=== PATIENT | male | born 1935 | race African-American/Black ===

== ENCOUNTER 2016-10-19 14:02 | Emergency (ER) | payer MEDICARE ==
[2016-10-19] MEDS ORDERED: Acetaminophen/Codeine 30-300mg Tablet ONE (14:22)
--- NOTE | 2016-10-19 14:42 | ERRECORD ---
[facility] EMERGENCY RECORD HPI GENERAL (14:25 [facility]) CHIEF COMPLAINT: Patient presents for evaluation of headache. HISTORIAN: History provided by patient, with headache x few days tooth extraction last week no fever or chills / ran out of t3 prescription no dizziness/ no nausea or vomiting or numbness or tingling pain 5-10 frontal head. MECHANISM OF INJURY: Unknown mechanism. LOCATION: frontal head. QUALITY: Pain is dull in nature. SEVERITY: Maximum severity of symptoms moderate, Currently symptoms are moderate. TIME COURSE: Gradual onset of symptoms, There has been no change in the patient's symptoms over time. ASSOCIATED WITH: No associated symptoms. EXACERBATED BY: Patient's condition exacerbated by nothing. RELIEVED BY: Patient's condition relieved by over the counter medications. ROS (14:26 [facility]) CONSTITUTIONAL: Negative constitutional review of systems. EYES: Negative eye review of systems. ENT: toothache. CARDIOVASCULAR: Negative cardiovascular review of systems. RESPIRATORY: Negative respiratory review of systems. GI: Negative gastrointestinal review of systems. NEUROLOGIC: Historian reports headache. NOTES: All systems reviewed, negative except as described above. PAST MEDICAL HISTORY (14:11 [facility]) MEDICAL HISTORY: Notes: BPH, Flu vaccine not up to date, Tetanus immunization up to date, Pneumococcal vaccine up to date, Notes: Lung Cancer (Left Lobectomy), Past medical history includes history of hypertension. MALE SURGICAL HISTORY: Left lung lobectomy. SOCIAL HISTORY: Patient denies alcohol use, Patient denies drug use, Patient denies alcohol use, Patient denies drug use, Patient is a former tobacco user, Patient quit smoking more than 10 years ago.. KNOWN ALLERGIES No Known Drug Allergies CURRENT MEDICATIONS (14:08 [facility]) Eliquis: TABLET : Strength - 5 mg : ORAL Patient Dose: 2 times a day. ferrous sulfate: &a-1R&a+25V*p+0X*c5227I*c202B*c15G*c2P*p-0X&a-25V&a+1R Name: Yao Crawford : 1935 M81 MedRec: [id number] AcctNum: [id number] Prepared: Wood Oct 19, 2016 15:11 by Interface Page 1 of 3 pMD [facility] EMERGENCY RECORD TABLET : Strength - 325 mg (65 mg iron) : ORAL Patient Dose: Oral once a day. pantoprazole: TABLET, DELAYED RELEASE (ENTERIC COATED) : Strength - 40 mg : ORAL Patient Dose: Oral 2 times a day.FOR 14 DAYS, 01/29/16. tamsulosin: CAPSULE, EXT RELEASE 24 HR : Strength - 0.4 mg : ORAL Patient Dose: Oral once a day (at bedtime). acetaminophen-codeine: TABLET : Strength - 300 mg-30 mg : ORAL Patient Dose: 1 tab(s) Oral every 6 hours PRN. spironolactone: TABLET : Strength - 50 mg : ORAL Patient Dose: 1 tab(s) Oral once a day. valsartan: TABLET : Strength - 160 mg : ORAL Patient Dose: 1 tab(s) Oral once a day. traMADol: TABLET : Strength - 50 mg : ORAL Patient Dose: 1 tab(s) Oral every 6 hours PRN. amLODIPine: TABLET : Strength - 5 mg : ORAL Patient Dose: 1 tab(s) Oral once a day. carvedilol: TABLET : Strength - 12.5 mg : ORAL Patient Dose: 1 tab(s) Oral 2 times a day. cloNIDine HCl: TABLET : Strength - 0.3 mg : ORAL Patient Dose: 1 tab(s) Oral 2 times a day. Combivent Respimat: MIST INHALER (GRAM) : Strength - 20 mcg-100 mcg/actuation : INHALATION Patient Dose: Unknown. VITAL SIGNS (14:08 [facility]) VITAL SIGNS: BP: 120/67, Pulse: 83, Resp: 16, Temp: 97.1 (Oral), Pain: 9, O2 sat: 96, Time: 10/19/2016 14:08. PHYSICAL EXAM (14:27 [facility]) CONSTITUTIONAL: Vital signs reviewed, Patient afebrile, Pulse normal, Blood pressure normal, Respiratory rate normal, Patient appears non toxic, Patient appears pain free, Patient alert and oriented to person, place and time. HEAD: Head exam normal. EYES: Eye exam normal. ENT: Teeth with, dental caries, R lower side area of extraction not infected no bleeding or swelling. NECK: Neck exam normal. RESPIRATORY CHEST: Respiratory and chest exam normal. &a-1R&a+25V*p+0X*[id number]*c202B*c15G*c2P*p-0X&a-25V&a+1R Name: Yao Crawford : 1935 M81 MedRec: [id number] AcctNum: [id number] Prepared: TueOct 19, 2016 15:11 by Interface Page 2 of 3 pMD [facility] EMERGENCY RECORD CARDIOVASCULAR: Cardiovascular assessment normal. NEURO: Neuro exam normal. MEDICATION ADMINISTRATION SUMMARY Drug Name: acetaminophen-codeine, Dose Ordered: 2 tab(s), Route: Oral, Status: Given, Time: 14:22 10/19/2016, Detailed record available in Medication Service section. DOCTOR NOTES (14:23 [facility]) TEXT: 81 yo M with frontal headache s/p tooth extraction last week no fever or chills / ran out of t3 t3 refill / follow up with pcp as needed. PATIENT PLAN: The patient will be discharged, The patient will follow up with primary care physician. DATA REVIEWED: Discussed with family. PROBLEM LIST No recorded problems DIAGNOSIS (14:21 [facility]) FINAL: PRIMARY: Headache, ADDITIONAL: Toothache. PRESCRIPTION (14:21 [facility]) acetaminophen-codeine: TABLET : 300 mg-30 mg : ORAL : Quantity: 1 Unit: tab(s) Route: ORAL Schedule: every 6 hours PRN Dispense: 15 Unit: tab(s) May substitute. Refills: No Refills . NOTES: No Refills. DISPOSITION PATIENT: Disposition Type: Discharge, Disposition: *Discharge Home. (14:21 [facility]) Patient left the department. (14:33 [facility]) Webb: VON=MARIA T Tucker, Yannick SEPULVEDA=MD Nory, Trina &a-1R&a+25V*p+0X*o5792O*c202B*c15G*c2P*p-0X&a-25V&a+1R Name: Yao Crawford : 1935 M81 MedRec: [id number] AcctNum: [id number] Prepared: TueOct 19, 2016 15:11 by Interface Page 3 of 3 pMD [facility]TDD
--- NOTE | 2016-10-19 14:46 | PICIS ---
[facility] EMERGENCY RECORD TRIAGE (14:08 [facility]) TRIAGE NOTES: Headache, constant 2 days mostly frontal headache. (14:08 [facility]) PATIENT: NAME: Yao Crawford, AGE: 81, GENDER: male, : Tue1935, TIME OF GREET: TueOct 19, 2016 14:03, PREFERRED LANGUAGE: Yakut, ETHNICITY: Not or , ECODE BILLING MAP: [facility], SSN: [id number], Zip Code: [address], KG WEIGHT: 64.41, PHONE: , , , PERSON ID: [id number], PCP: Faina Nath. (14:08 [facility]) COMPLAINT: HEADACHE. (14:08 [facility]) ADMISSION: URGENCY: 3 Urgent, ADMISSION SOURCE: Home, TRANSPORT: CAR, BED: TRIAGE. (14:08 [facility]) ASSESSMENT: Assessment: Frontal Headache 2-3 days onset, Symptoms began 2-3 days, Symptoms began 3 days ago. (14:11 [facility]) PAIN: Patient complains of pain described as, on a scale 0-10 patient rates pain as 9. (14:11 [facility]) SIRS SCORING: Heart Rate 55-109 (0), Temp range 96.8-101.1 (0), respiratory rate 12-24 (0), Mental Status altered: no (0), Infection or Suspected Infection: No. (14:11 [facility]) TRIAGE SCREENING: Patient denies suicidal ideation, Patient denies presence of domestic violence. (14:11 [facility]) PROVIDERS: TRIAGE NURSE: Yannick Tucker RN. (14:08 [facility]) PREVIOUS VISIT ALLERGIES: No Known Drug Allergies. (14:08 [facility]) No Known Drug Allergies. (14:11 [facility]) KNOWN ALLERGIES No Known Drug Allergies CURRENT MEDICATIONS (14:08 [facility]) Eliquis: TABLET : Strength - 5 mg : ORAL Patient Dose: 2 times a day. ferrous sulfate: TABLET : Strength - 325 mg (65 mg iron) : ORAL Patient Dose: Oral once a day. pantoprazole: TABLET, DELAYED RELEASE (ENTERIC COATED) : Strength - 40 mg : ORAL Patient Dose: Oral 2 times a day.FOR 14 DAYS, 5/12/16. tamsulosin: CAPSULE, EXT RELEASE 24 HR : Strength - 0.4 mg : ORAL Patient Dose: Oral once a day (at bedtime). acetaminophen-codeine: TABLET : Strength - 300 mg-30 mg : ORAL Patient Dose: 1 tab(s) Oral every 6 hours PRN. spironolactone: TABLET : Strength - 50 mg : ORAL Patient Dose: 1 tab(s) Oral once a day. valsartan: TABLET : Strength - 160 mg : ORAL &a-1R&a+25V*p+0X*m8977G*c202B*c15G*c2P*p-0X&a-25V&a+1R Name: Yao Crawford : 1935 M81 MedRec: [id number] AcctNum: [id number] Prepared: Wood Oct 19, 2016 15:11 by Interface Page 1 of 6 pMD [facility] EMERGENCY RECORD Patient Dose: 1 tab(s) Oral once a day. traMADol: TABLET : Strength - 50 mg : ORAL Patient Dose: 1 tab(s) Oral every 6 hours PRN. amLODIPine: TABLET : Strength - 5 mg : ORAL Patient Dose: 1 tab(s) Oral once a day. carvedilol: TABLET : Strength - 12.5 mg : ORAL Patient Dose: 1 tab(s) Oral 2 times a day. cloNIDine HCl: TABLET : Strength - 0.3 mg : ORAL Patient Dose: 1 tab(s) Oral 2 times a day. Combivent Respimat: MIST INHALER (GRAM) : Strength - 20 mcg-100 mcg/actuation : INHALATION Patient Dose: Unknown. VITAL SIGNS (14:08 [facility]) VITAL SIGNS: BP: 120/67, Pulse: 83, Resp: 16, Temp: 97.1 (Oral), Pain: 9, O2 sat: 96, Time: 10/19/2016 14:08. NURSING ASSESSMENT: HEADACHE (14:08 [facility]) CONSTITUTIONAL: Patient arrives, via personal wheelchair, Gait steady, History obtained from patient, Patient appears comfortable, Patient cooperative, Patient alert, Oriented to person, place and time, Skin warm, Skin dry, Skin normal in color, Mucous membranes pink, Mucous membranes moist, Patient complains of Frontal Sinus Pressure/ Headache, 2-3 days onset. PAIN: aching pain, pressure pain, to the frontal region, Onset of pain 2-3 days, on a scale 0-10 patient rates pain as 9. HEADACHE: Headache assessment findings include headache not worst of life, no history of migraines, no associated aura, no associated difficulty concentrating, not associated with diplopia, no associated nausea, no associated vomiting, no associated photophobia, no associated phonophobia, no associated, Precipitating factors do not include depression, Precipitating factors do not include fatigue, Precipitating factors do not include fever, Precipitating factors do not include flickering lights, Precipitating factors do not include food, Precipitating factors do not include menses, Precipitating factors do not include stress, Precipitating factors do not include watching television, Precipitating factors do not include. NEURO: Pupils equally round and reactive to light, Able to close eyes, Face symmetrical, Speech normal, no ptosis, no nystagmus, no visual changes, no facial droop, no facial numbness, no swelling, no paresthesias, GCS:, Eye opening: (4) - Spontaneous, Verbal: (5) - Oriented/conversive, Motor: (6) - Obeys commands/Spontaneous, GCS Total: 15, Hand grasps equal, Upper extremity strength strong, no numbness to upper extremities, Lower extremity strength &a-1R&a+25V*p+0X*a5782W*c202B*c15G*c2P*p-0X&a-25V&a+1R Name: Yao Crawford : 1935 M81 MedRec: [id number] AcctNum: [id number] Prepared: Wood Oct 19, 2016 15:11 by Interface Page 2 of 6 pMD [facility] EMERGENCY RECORD strong, Foot press equal, no numbness to lower extremities, no associated dizziness present, no associated fever, no associated memory loss, no associated loss of consciousness, no associated motor ability changes, no associated neck stiffness, no associated nausea, no associated alterations in sensation, no associated personality changes, no associated posturing, no associated seizures, no associated syncopal episode, no associated vomiting, no associated weakness. SAFETY: Side rails up, Cart/Stretcher in lowest position, Family at bedside, Call light within reach, Hospital ID band on. NURSING PROCEDURE: DISCHARGE NOTE (14:27 [facility]) DISCHARGE: Patient discharged to home, in a wheelchair, family driving, accompanied by other family member, Summary of Care printed/ provided, Patient requested and was provided an electronic copy of Discharge Instructions, Transition record given to patient, Discharge instructions given to patient, Simple or moderate discharge teaching performed, Prescriptions given and instructions on side effects given, Name of prescription(s) given: Tylenol # 3, Medication reconciliation form given, Above person(s) verbalized understanding of discharge instructions and follow-up care, Patient treated and evaluated by physician. BELONGINGS: Belongings and valuables with patient at time of discharge include:, Belongings remain with patient, Valuables remain with patient. SAFETY: Side rails up, Cart/Stretcher in lowest position, Family at bedside, Call light within reach, Hospital ID band on. MEDICATION ADMINISTRATION SUMMARY Drug Name: acetaminophen-codeine, Dose Ordered: 2 tab(s), Route: Oral, Status: Given, Time: 14:22 10/19/2016, Detailed record available in Medication Service section. MEDICATION SERVICE (14:22 [facility]) acetaminophen-codeine: Order: acetaminophen-codeine (acetaminophen/codeine phosphate) - Dose: 2 tab(s) : Oral Schedule: Now Ordered by: Trina Cueto MD Entered by: Trina Cueto MD TueOct 19, 2016 14:20 , Acknowledged by: Yannick Tucker RN Oct 19, 2016 14:21 Documented as given by: Yannick Tucker RN Oct 19, 2016 14:22 Patient, Medication, Dose, Route and Time verified prior to administration. Patient appears Awake and alert- acceptable, Correct patient, time, route, dose and medication confirmed prior to administration, Patient advised of actions and side-effects prior to administration, Allergies confirmed and medications reviewed prior to administration, Patient in position of comfort, Side rails up, Cart in lowest position, Family at bedside, Call light in reach. &a-1R&a+25V*p+0X*e0129X*c202B*c15G*c2P*p-0X&a-25V&a+1R Name: Yao Crawford : 1935 M81 MedRec: [id number] AcctNum: [id number] Prepared: Tue Oct 19, 2016 15:11 by Interface Page 3 of 6 pMD [facility] EMERGENCY RECORD HPI GENERAL (14:25 [facility]) CHIEF COMPLAINT: Patient presents for evaluation of headache. HISTORIAN: History provided by patient, with headache x few days tooth extraction last week no fever or chills / ran out of t3 prescription no dizziness/ no nausea or vomiting or numbness or tingling pain 5-10 frontal head. MECHANISM OF INJURY: Unknown mechanism. LOCATION: frontal head. QUALITY: Pain is dull in nature. SEVERITY: Maximum severity of symptoms moderate, Currently symptoms are moderate. TIME COURSE: Gradual onset of symptoms, There has been no change in the patient's symptoms over time. ASSOCIATED WITH: No associated symptoms. EXACERBATED BY: Patient's condition exacerbated by nothing. RELIEVED BY: Patient's condition relieved by over the counter medications. ROS (14:26 [facility]) CONSTITUTIONAL: Negative constitutional review of systems. EYES: Negative eye review of systems. ENT: toothache. CARDIOVASCULAR: Negative cardiovascular review of systems. RESPIRATORY: Negative respiratory review of systems. GI: Negative gastrointestinal review of systems. NEUROLOGIC: Historian reports headache. NOTES: All systems reviewed, negative except as described above. PAST MEDICAL HISTORY (14:11 [facility]) MEDICAL HISTORY: Notes: BPH, Flu vaccine not up to date, Tetanus immunization up to date, Pneumococcal vaccine up to date, Notes: Lung Cancer (Left Lobectomy), Past medical history includes history of hypertension. MALE SURGICAL HISTORY: Left lung lobectomy. SOCIAL HISTORY: Patient denies alcohol use, Patient denies drug use, Patient denies alcohol use, Patient denies drug use, Patient is a former tobacco user, Patient quit smoking more than 10 years ago.. PHYSICAL EXAM (14:27 [facility]) CONSTITUTIONAL: Vital signs reviewed, Patient afebrile, Pulse normal, Blood pressure normal, Respiratory rate normal, Patient appears non toxic, Patient appears pain free, Patient alert and oriented to person, place and time. HEAD: Head exam normal. EYES: Eye exam normal. &a-1R&a+25V*p+0X*g9440X*c202B*c15G*c2P*p-0X&a-25V&a+1R Name: Yao Crawford : 1935 M81 MedRec: [id number] AcctNum: [id number] Prepared: TueOct 19, 2016 15:11 by Interface Page 4 of 6 pMD [facility] EMERGENCY RECORD ENT: Teeth with, dental caries, R lower side area of extraction not infected no bleeding or swelling. NECK: Neck exam normal. RESPIRATORY CHEST: Respiratory and chest exam normal. CARDIOVASCULAR: Cardiovascular assessment normal. NEURO: Neuro exam normal. EVENTS TRANSFER: Triage to Emergency Triage. (TueOct 19, 2016 14:08 [facility]) Emergency Triage to Emergency Room -02. (14:08 [facility]) Removed from Emergency Emergency Room -02. (14:33 [facility]) DOCTOR NOTES (14:23 [facility]) TEXT: 81 yo M with frontal headache s/p tooth extraction last week no fever or chills / ran out of t3 t3 refill / follow up with pcp as needed. PATIENT PLAN: The patient will be discharged, The patient will follow up with primary care physician. DATA REVIEWED: Discussed with family. PROBLEM LIST No recorded problems DIAGNOSIS (14:21 [facility]) FINAL: PRIMARY: Headache, ADDITIONAL: Toothache. DISPOSITION PATIENT: Disposition Type: Discharge, Disposition: *Discharge Home. (14:21 [facility]) Patient left the department. (14:33 [facility]) INSTRUCTION (14:22 [facility]) DISCHARGE: HEADACHE, UNSPECIFIED, TOOTH PAIN. SPECIAL: please take pain medications as needed follow up with your pcp or dentist if not improved. PRESCRIPTION (14:21 [facility]) acetaminophen-codeine: TABLET : 300 mg-30 mg : ORAL : Quantity: 1 Unit: tab(s) Route: ORAL Schedule: every 6 hours PRN Dispense: 15 Unit: tab(s) May substitute. Refills: No Refills . NOTES: No Refills. IMAGING (14:31 [facility]) &a-1R&a+25V*p+0X*g1328S*c202B*c15G*c2P*p-0X&a-25V&a+1R Name: Yao Crawford : 1935 M81 MedRec: [id number] AcctNum: [id number] Prepared: TueOct 19, 2016 15:11 by Interface Page 5 of 6 pMD [facility] EMERGENCY RECORD *SUPPLY CHARGE SHEET: Image captured from scanner. *DISCHARGE INSTRUCTIONS RECEIPT: Image captured from scanner. ADMIN (15:03 [facility]) DIGITAL SIGNATURE: MD Nory, Trina. Webb: VON=MARIA T Tucker, Yannick SEPULVEDA=MD Nory, Trina &a-1R&a+25V*p+0X*x9214S*c202B*c15G*c2P*p-0X&a-25V&a+1R Name: Yao Crawford : 1935 M81 MedRec: [id number] AcctNum: [id number] Prepared: Wood Oct 19, 2016 15:11 by Interface Page 6 of 6 pMD MTDD
== END 2016-10-19 14:27 | disposition home or self-care (01) ==
LOC: NAV ERS 14:02
DX: R51 Headache (principal); K08.89 Other specified disorders of teeth and supporting structures; I10 Essential (primary) hypertension; Z87.891 Personal history of nicotine dependence; Z85.118 Personal history of other malignant neoplasm of bronchus and lung; Z79.891 Long term (current) use of opiate analgesic; Z79.899 Other long term (current) drug therapy
CPT/HCPCS: 99283

== ENCOUNTER 2016-10-31 14:08 | Emergency (ER) | payer MEDICARE ==
[2016-10-31] MEDS ORDERED: Acetaminophen 500 MG TAB ONE ×2 (14:44)
== END 2016-10-31 15:55 | disposition home or self-care (01) ==
LOC: NAV ERS 14:08
DX: S60.562A Insect bite (nonvenomous) of left hand, initial encounter (principal); I10 Essential (primary) hypertension; Z87.891 Personal history of nicotine dependence; Z79.899 Other long term (current) drug therapy
CPT/HCPCS: 99283

== ENCOUNTER 2017-03-02 23:04 | Emergency (ER) | payer MEDICARE ==
[2017-03-02] MEDS ORDERED: Acetaminophen 500 MG TAB ONE (23:33)
[2017-03-02] MEDS ORDERED: Fentanyl 100 MCG/2 ML VIAL ONE (23:33)
[2017-03-02] MEDS ORDERED: Sodium Chloride 0.9% 1,000 ML ONE (23:33)
[2017-03-02 23:58] LABS: Clarity Clear (Clear)
--- NOTE | 2017-03-02 23:58 | RAD ---
CHEST ONE VIEW 03/02/17 HISTORY: Fever. COMPARISON: None. FINDINGS: There is a right upper lobe air space opacity peripherally. This extends to the minor fissure. There is prominence of the right hilum. On the lower view of the chest, there is a prominent right upper lobe skin fold. Left lung appears relatively clear. The heart size is prominent. IMPRESSION: Right upper lobe and middle lobe air space opacity concerning for infection. There is, however, mild prominence of the right hilum for which a followup examination after treatment is recommended. Unde rlying mass cannot be excluded. POS: [facility]
[2017-03-02 23:59] LABS: Bilirubin Negative (Negative); Blood, Urine Negative (Negative); Glucose, Urine (Dipstick) Negative (Negative); Protein, Urine (Dipstick) Negative (Neg-Trace); Specific Gravity, Urine 1.017 (1.002-1.036); Urobilinogen 0.2 mg/dL (0.2-1.0); pH, Urine 6.5 (5.0-9.0)
[2017-03-03] LABS: Leukocyte Trace (Negative); Nitrite Negative (Negative)
[2017-03-03 00:08] LABS: RBC/HPF None Seen HPF (0-3); WBC/HPF 0-3 HPF (0-3)
[2017-03-03 00:09] LABS: Squamous Epithelial 0-3 HPF (0-3)
[2017-03-03 00:10] LABS: ALT (SGPT) 9 U/L (8-55); AST (SGOT) 16 U/L (5-34); Albumin 4.1 g/dL (3.4-4.8); Alkaline Phosphatase 125 U/L (40-150); Anion Gap 17 mmol/L (10-20); BUN (Urea Nitrogen) 22 mg/dL (8.4-25.7); Bilirubin, Total 0.9 mg/dL (0.2-1.2); CK (CPK) 143 U/L (30-200); Calc. Creatinine Clearance 0 mL/min (70-130); Calcium 9.5 mg/dL (7.8-10.44); Carbon Dioxide 23 mmol/L (23-31); Chloride 105 mmol/L (98-107); Estimated GFR-MDRD 65; Globulin 3.7 g/dL (2.4-3.5); Glucose 126 mg/dL (83-110); Potassium 4.1 mmol/L (3.5-5.1); Protein, Total 7.8 g/dL (5.8-8.1); Sodium 141 mmol/L (136-145)
[2017-03-03 00:10] LABS: Bacteria/HPF Rare-Few HPF (None Seen)
[2017-03-03 00:12] LABS: CKMB 2.1 ng/mL (0-6.6)
[2017-03-03 00:15] LABS: Band 34 % (5-11); Hemoglobin 14.3 g/dL (14.0-18.0); Lymphocytes 12 % (21-51); MDiff Complete? YES; Macrocytosis SLIGHT = 6-15 cells (100X) (0-5/hpf); Mean Corpuscular HGB CONC 32.6 g/dL (32.0-36.0); Mean Corpuscular Hemoglobin 33.7 pg (27.0-31.0); Mean Platelet Volume 6.2 fL (7.4-10.4); Monocytes 3 % (0-10); Myelocyte 1 % (0-0); Neutrophil 50 % (42-75); PLT Morphology Comment Appears Adequate; Platelet Count 307 thou/uL (130-400); RBC Distribution Width 12.8 % (11.5-14.5); Red Blood Cell (RBC) Count 4.24 mill/uL (4.70-6.10); White Blood Cell (WBC) Count 7.7 thou/uL (4.8-10.8)
[2017-03-03] MEDS ORDERED: Levofloxacin 500 mg/D5W 100 ml Premix Bag ONE (00:30)
== END 2017-03-03 01:08 | disposition short-term general hospital (02) ==
LOC: NAV ERS 23:04
DX: J18.9 Pneumonia, unspecified organism (principal); I10 Essential (primary) hypertension; Z87.891 Personal history of nicotine dependence
CPT/HCPCS: 51701; 71010; 80053; 81003; 81015; 82550; 82553; 83605; 84484; 85025; 87040; 87086; 93005; 94760; 96374; 96375; J1956; J3010; J7050

== ENCOUNTER 2017-04-14 11:26 | Outpatient (CLI) | payer MEDICARE ==
--- NOTE | 2017-04-14 12:02 | RAD ---
TWO VIEWS CHEST: History: Hypoxia, pneumonia. FINDINGS: PA and lateral views obtained. Ectasia of the aorta is seen. Mild pulmonary vascular congestion is s een. Some left pleural based calcifications are seen. No evidence of effusions, pneumonia, or pneumo thorax is seen. IMPRESSION: No acute intrathoracic abnormality seen. POS: [facility]
== END 2017-04-14 11:27 | disposition home or self-care (01) ==
LOC: NAV RAD 11:26
PROVIDERS: ATTEND Nurse Practitioner Family
DX: J18.9 Pneumonia, unspecified organism (principal); R09.02 Hypoxemia; R06.00 Dyspnea, unspecified
CPT/HCPCS: 71020

== ENCOUNTER 2017-08-02 22:27 | Emergency (ER) | payer MEDICARE ==
[2017-08-02 22:55] LABS: Anisocytosis MODERATE=16-30 cells (100X) (0-5/hpf); Eosinophils 1 % (0-10); Hemoglobin 12.9 g/dL (14.0-18.0); Lymphocytes 74 % (21-51); MDiff Complete? YES; Mean Corpuscular HGB CONC 32.8 g/dL (32.0-36.0); Mean Corpuscular Hemoglobin 34.9 pg (27.0-31.0); Mean Platelet Volume 6.6 fL (7.4-10.4); Monocytes 5 % (0-10); Neutrophil 20 % (42-75); Nucleated RBC 1 % (0); Ovalocytes SLIGHT = 2-5 cells (100X) (0-1/hpf); PLT Morphology Comment Appears Adequate; Platelet Count 218 thou/uL (130-400); RBC Distribution Width 12.7 % (11.5-14.5); Red Blood Cell (RBC) Count 3.71 mill/uL (4.70-6.10); Tear Drops SLIGHT = 2-5 cells (100X) (0-1/hpf); White Blood Cell (WBC) Count 4.8 thou/uL (4.8-10.8)
--- NOTE | 2017-08-02 23:00 | RAD ---
CHEST ONE VIEW 08/02/17 HISTORY: Chest pain. FINDINGS: The cardiac silhouette and pulmonary vasculature are unremarkable. Lungs are hyperinflated. Mediasti num is midline. There is no lobar consolidation, or evidence of pneumothorax. Azygos fissure is note d at the medial aspect of the right lung apex. program and research coordinator leads overlie the chest. There are de generative changes of each shoulder. IMPRESSION: COPD. POS: [facility]
[2017-08-02 23:06] LABS: ALT (SGPT) 11 U/L (8-55); AST (SGOT) 18 U/L (5-34); Albumin 3.7 g/dL (3.4-4.8); Alkaline Phosphatase 125 U/L (40-150); Anion Gap 13 mmol/L (10-20); BUN (Urea Nitrogen) 19 mg/dL (8.4-25.7); Bilirubin, Total 0.3 mg/dL (0.2-1.2); CK (CPK) 211 U/L (30-200); Calc. Creatinine Clearance 0 mL/min (70-130); Calcium 8.8 mg/dL (7.8-10.44); Carbon Dioxide 26 mmol/L (23-31); Chloride 104 mmol/L (98-107); Estimated GFR-MDRD 74; Globulin 3.4 g/dL (2.4-3.5); Glucose 73 mg/dL (83-110); Lipase 19 U/L (8-78); Potassium 3.9 mmol/L (3.5-5.1); Protein, Total 7.1 g/dL (5.8-8.1); Sodium 139 mmol/L (136-145)
[2017-08-02 23:07] LABS: CKMB 5.5 ng/mL (0-6.6); Troponin I 0.045 ng/mL (< 0.028)
== END 2017-08-03 01:07 | disposition short-term general hospital (02) ==
LOC: NAV ERS 22:27
DX: R07.9 Chest pain, unspecified (principal); I10 Essential (primary) hypertension; Z87.891 Personal history of nicotine dependence
CPT/HCPCS: 36415; 71010; 80053; 82553; 83690; 84484; 85025; 93005

== ENCOUNTER 2017-08-03 21:49 | Emergency (ER) | payer MEDICARE ==
[2017-08-03 22:33] LABS: Bilirubin Negative (Negative); Blood, Urine Negative (Negative); Clarity Clear (Clear); Glucose, Urine (Dipstick) Negative (Negative); Leukocyte Negative (Negative); Nitrite Negative (Negative); Protein, Urine (Dipstick) Trace mg/dL (Neg-Trace); Urobilinogen 0.2 mg/dL (0.2-1.0); pH, Urine 5.5 (5.0-9.0)
[2017-08-03 22:44] LABS: ALT (SGPT) 10 U/L (8-55); AST (SGOT) 17 U/L (5-34); Albumin 3.6 g/dL (3.4-4.8); Alkaline Phosphatase 117 U/L (40-150); Anion Gap 13 mmol/L (10-20); BUN (Urea Nitrogen) 25 mg/dL (8.4-25.7); Bilirubin, Total 0.3 mg/dL (0.2-1.2); Calc. Creatinine Clearance 0 mL/min (70-130); Calcium 8.6 mg/dL (7.8-10.44); Carbon Dioxide 27 mmol/L (23-31); Chloride 104 mmol/L (98-107); Estimated GFR-MDRD 76; Globulin 3.3 g/dL (2.4-3.5); Glucose 94 mg/dL (83-110); Lipase 21 U/L (8-78); Potassium 4.3 mmol/L (3.5-5.1); Protein, Total 6.9 g/dL (5.8-8.1); Sodium 140 mmol/L (136-145)
[2017-08-03 22:45] LABS: Troponin I 0.032 ng/mL (< 0.028)
[2017-08-03 22:48] LABS: Band 5 % (5-11); Eosinophils 2 % (0-10); Hemoglobin 12.6 g/dL (14.0-18.0); Lymphocytes 63 % (21-51); MDiff Complete? YES; Macrocytosis SLIGHT = 6-15 cells (100X) (0-5/hpf); Mean Corpuscular HGB CONC 32.5 g/dL (32.0-36.0); Mean Platelet Volume 6.9 fL (7.4-10.4); Neutrophil 29 % (42-75); PLT Morphology Comment Appears Adequate; Platelet Count 314 thou/uL (130-400); RBC Distribution Width 12.4 % (11.5-14.5); Reactive Lymphocytes 1 % (0-10); White Blood Cell (WBC) Count 4.1 thou/uL (4.8-10.8)
[2017-08-03 22:54] LABS: CKMB 7.8 ng/mL (0-6.6)
== END 2017-08-03 23:00 | disposition home or self-care (01) ==
LOC: NAV ERS 21:49
DX: R10.11 Right upper quadrant pain (principal); I10 Essential (primary) hypertension; Z87.891 Personal history of nicotine dependence
CPT/HCPCS: 80053; 81003; 82550; 82553; 83690; 84484; 85025; 93005

== ENCOUNTER 2017-08-22 20:39 | Emergency (ER) | payer MEDICARE ==
--- NOTE | 2017-08-22 21:33 | RAD ---
ONE VIEW CHEST: History: Shortness of breath, cough x one week. Comparison: 08-02-17 FINDINGS: Normal cardiac silhouette. The pulmonary vessels and hilum are normal. Costophrenic angles are clear. Hyperinflation with chronic changes. No consolidation or mass. No pneumothorax or osseous abnormalit ies. Degenerative changes in both shoulders are noted. IMPRESSION: Chronic changes. No acute cardiopulmonary process. POS: [facility]
[2017-08-22 21:34] LABS: ALT (SGPT) 21 U/L (8-55); AST (SGOT) 27 U/L (5-34); Albumin 3.2 g/dL (3.4-4.8); Alkaline Phosphatase 108 U/L (40-150); Anion Gap 15 mmol/L (10-20); BUN (Urea Nitrogen) 20 mg/dL (8.4-25.7); Bilirubin, Total 0.2 mg/dL (0.2-1.2); Calc. Creatinine Clearance 0 mL/min (70-130); Calcium 8.3 mg/dL (7.8-10.44); Carbon Dioxide 22 mmol/L (23-31); Chloride 109 mmol/L (98-107); Estimated GFR-MDRD 83; Globulin 3.2 g/dL (2.4-3.5); Glucose 89 mg/dL (83-110); Potassium 4.6 mmol/L (3.5-5.1); Protein, Total 6.4 g/dL (5.8-8.1); Sodium 141 mmol/L (136-145)
[2017-08-22 21:38] LABS: Hemoglobin 11.1 g/dL (14.0-18.0); Mean Corpuscular HGB CONC 34.6 g/dL (32.0-36.0); Mean Corpuscular Hemoglobin 36.6 pg (27.0-31.0); Mean Platelet Volume 6.1 fL (7.4-10.4); Platelet Count 297 thou/uL (130-400); Red Blood Cell (RBC) Count 3.04 mill/uL (4.70-6.10); White Blood Cell (WBC) Count 4.6 thou/uL (4.8-10.8)
[2017-08-22 21:40] LABS: CKMB 5.5 ng/mL (0-6.6); Troponin I 0.026 ng/mL (< 0.028)
[2017-08-22 21:56] LABS: Eosinophils 4 % (0-10); Large Platelets SLIGHT; Lymphocytes 54 % (21-51); MDiff Complete? YES; Macrocytosis SLIGHT = 6-15 cells (100X) (0-5/hpf); Monocytes 2 % (0-10); Neutrophil 40 % (42-75); PLT Morphology Comment Appears Adequate
== END 2017-08-22 22:45 | disposition home or self-care (01) ==
LOC: NAV ERS 20:39
DX: R06.00 Dyspnea, unspecified (principal); I10 Essential (primary) hypertension; F03.90 Unspecified dementia, unspecified severity, without behavioral disturbance, psychotic disturbance, mood disturbance, and anxiety; Z87.891 Personal history of nicotine dependence
CPT/HCPCS: 36415; 71010; 80053; 82553; 83880; 84484; 85025; 87040; 93005

== ENCOUNTER 2017-08-28 15:27 | Emergency (ER) | payer MEDICARE ==
[2017-08-28 16:14] LABS: Bilirubin Negative (Negative); Blood, Urine Trace (Negative); Clarity Clear (Clear); Glucose, Urine (Dipstick) Negative (Negative); Leukocyte Negative (Negative); Nitrite Negative (Negative); Protein, Urine (Dipstick) 30 mg/dL (Neg-Trace); Urobilinogen 0.2 mg/dL (0.2-1.0)
[2017-08-28 16:24] LABS: #Basophils 0.1 thou/uL (0.0-0.2); #Lymphocytes 1.6 thou/uL (1.20-3.40); #Monocytes 0.1 thou/uL (0.11-0.59); #Neutrophils 5.3 thou/uL (1.40-6.50); %Basophils 0.8 % (0.0-1.0); %Eosinophils 0.2 % (0.0-10.0); %Lymphocytes 22.4 % (21.0-51.0); %Monocytes 1.8 % (0.0-10.0); %Neutrophils 74.8 % (42.0-75.0); Hemoglobin 11.9 g/dL (14.0-18.0); Mean Corpuscular Hemoglobin 35.7 pg (27.0-31.0); Mean Platelet Volume 6.3 fL (7.4-10.4); Platelet Count 318 thou/uL (130-400); RBC Distribution Width 12.9 % (11.5-14.5); Red Blood Cell (RBC) Count 3.34 mill/uL (4.70-6.10); White Blood Cell (WBC) Count 7.1 thou/uL (4.8-10.8)
[2017-08-28 16:28] LABS: ALT (SGPT) 84 U/L (8-55); AST (SGOT) 34 U/L (5-34); Albumin 3.6 g/dL (3.4-4.8); Alkaline Phosphatase 136 U/L (40-150); Anion Gap 15 mmol/L (10-20); BUN (Urea Nitrogen) 23 mg/dL (8.4-25.7); Bilirubin, Total 0.6 mg/dL (0.2-1.2); Calc. Creatinine Clearance 0 mL/min (70-130); Calcium 8.7 mg/dL (7.8-10.44); Carbon Dioxide 24 mmol/L (23-31); Chloride 103 mmol/L (98-107); Estimated GFR-MDRD 68; Globulin 3.4 g/dL (2.4-3.5); Glucose 100 mg/dL (83-110); Lipase 6 U/L (8-78); Potassium 4.2 mmol/L (3.5-5.1); Sodium 138 mmol/L (136-145)
[2017-08-28 16:30] LABS: RBC/HPF 0-3 HPF (0-3); Squamous Epithelial 0-3 HPF (0-3); WBC/HPF 0-3 HPF (0-3)
--- NOTE | 2017-08-28 17:17 | CT ---
ABDOMEN AND PELVIS CT NONCONTRAST: Date: 08/28/17 INDICATION: Periumbilical pain. Reference made to 03/03/17 CT exam. FINDINGS: There is incomplete assessed reticulonodular opacification of the lung bases, more notable on the rig ht, which may be on the basis of an atypical infection. There is bilateral nephrolithiasis, without s ignificant hydronephrosis, although limited by the degree of patient motion. There is diffuse vascula r calcification. Solid abdominal viscera, bowel, lymph nodes, and vasculature are limited in assessme nt by noncontrast technique. There is marked abnormality of each hip joint with osseous destruction a nd synovial fluid collection, similar to prior CT. IMPRESSION: 1. Redemonstration of bilateral nephrolithiasis. There is no obvious hydronephrosis. Exam is limited by the degree of patient motion. 2. Evidence to indicate probable atypical infection at the lung bases, incompletely visualized on th e basis of this exam. Correlate clinically. POS: [facility]
[2017-08-28] MEDS ORDERED: Acetaminophen/Codeine 30-300mg Tablet ONE (17:25)
[2017-08-28] MEDS ORDERED: Carvedilol 3.125 MG TAB ONE (17:35)
== END 2017-08-28 18:12 | disposition home or self-care (01) ==
LOC: NAV ERS 15:27
DX: N20.0 Calculus of kidney (principal); I10 Essential (primary) hypertension; S01.81XD Laceration without foreign body of other part of head, subsequent encounter; N40.0 Benign prostatic hyperplasia without lower urinary tract symptoms; Z87.891 Personal history of nicotine dependence; Z79.899 Other long term (current) drug therapy
CPT/HCPCS: 74176; 80053; 81003; 81015; 83605; 83690; 85025

== ENCOUNTER 2017-09-06 22:51 | Emergency (ER) | payer MEDICARE ==
--- NOTE | 2017-09-06 23:35 | RAD ---
TWO VIEWS CHEST: 09/06/17 PROVIDED CLINICAL HISTORY: Difficulty breathing for two months. FINDINGS: Comparison is made with the study dated 08/22/17. The cardiac and mediastinal silhouette is unchanged in appearance. Chronic appearing lung changes ziyad ear similar to the prior study. No focal consolidation, pleural fluid or pneumothorax apparent. IMPRESSION: No evidence for an acute cardiopulmonary process. POS: [facility]
[2017-09-06 23:45] LABS: CKMB 4.6 ng/mL (0-6.6); Troponin I 0.038 ng/mL (< 0.028)
[2017-09-07 00:07] LABS: Band 1 % (5-11); Eosinophils 2 % (0-10); Hemoglobin 14.5 g/dL (14.0-18.0); Lymphocytes 45 % (21-51); MDiff Complete? YES; Mean Corpuscular Hemoglobin 33.5 pg (27.0-31.0); Mean Platelet Volume 6.9 fL (7.4-10.4); Monocytes 2 % (0-10); Neutrophil 50 % (42-75); PLT Morphology Comment Appears Adequate; Platelet Count 329 thou/uL (130-400); RBC Distribution Width 13.6 % (11.5-14.5); RBC Morphology Normal; Red Blood Cell (RBC) Count 4.33 mill/uL (4.70-6.10); White Blood Cell (WBC) Count 5.3 thou/uL (4.8-10.8)
[2017-09-07 00:08] LABS: ALT (SGPT) 36 U/L (8-55); AST (SGOT) 24 U/L (5-34); Albumin 3.2 g/dL (3.4-4.8); Alkaline Phosphatase 116 U/L (40-150); Anion Gap 16 mmol/L (10-20); BUN (Urea Nitrogen) 21 mg/dL (8.4-25.7); Bilirubin, Total 0.2 mg/dL (0.2-1.2); Calc. Creatinine Clearance 0 mL/min (70-130); Calcium 8.5 mg/dL (7.8-10.44); Carbon Dioxide 22 mmol/L (23-31); Chloride 110 mmol/L (98-107); Estimated GFR-MDRD 73; Globulin 3.4 g/dL (2.4-3.5); Glucose 90 mg/dL (83-110); Potassium 4.5 mmol/L (3.5-5.1); Protein, Total 6.6 g/dL (5.8-8.1); Sodium 143 mmol/L (136-145)
[2017-09-07 00:25] LABS: Bilirubin Negative (Negative); Blood, Urine Trace (Negative); Clarity Clear (Clear); Glucose, Urine (Dipstick) Negative (Negative); Leukocyte Negative (Negative); Nitrite Negative (Negative); Protein, Urine (Dipstick) 100 mg/dL (Neg-Trace); Specific Gravity, Urine 1.025 (1.005-1.030)
[2017-09-07 00:28] LABS: Bacteria/HPF Rare-Few HPF (None Seen); Squamous Epithelial 0-3 HPF (0-3)
== END 2017-09-07 00:54 | disposition home or self-care (01) ==
LOC: NAV ERS 22:51
DX: R06.02 Shortness of breath (principal)
CPT/HCPCS: 71020; 80053; 81003; 81015; 82553; 83880; 84484; 85025; 93005; 94760

== ENCOUNTER 2017-09-09 09:56 | Emergency (ER) | payer MEDICARE ==
[2017-09-09] MEDS ORDERED: Famotidine/PF 20 mg/2ml Vial ONE (10:32)
[2017-09-09] MEDS ORDERED: Lidocaine Viscous Sol 2% 15 ml UD Cup ONE (10:33)
[2017-09-09] MEDS ORDERED: Mag-Al Plus 1200 MG/1200 MG/120 MG/30 ML UDCUP ONE (10:33)
[2017-09-09 10:41] LABS: #Eosinphils 0.1 thou/uL (0.0-0.7); #Lymphocytes 1.6 thou/uL (1.20-3.40); #Monocytes 0.1 thou/uL (0.11-0.59); #Neutrophils 1.8 thou/uL (1.40-6.50); %Eosinophils 1.7 % (0.0-10.0); %Lymphocytes 44.9 % (21.0-51.0); %Monocytes 2.5 % (0.0-10.0); Hemoglobin 11.6 g/dL (14.0-18.0); Mean Corpuscular HGB CONC 32.9 g/dL (32.0-36.0); Mean Corpuscular Hemoglobin 33.9 pg (27.0-31.0); Mean Platelet Volume 7.3 fL (7.4-10.4); Platelet Count 328 thou/uL (130-400); RBC Distribution Width 13.5 % (11.5-14.5); Red Blood Cell (RBC) Count 3.44 mill/uL (4.70-6.10); White Blood Cell (WBC) Count 3.6 thou/uL (4.8-10.8)
[2017-09-09 10:54] LABS: ALT (SGPT) 45 U/L (8-55); AST (SGOT) 29 U/L (5-34); Albumin 3.4 g/dL (3.4-4.8); Alkaline Phosphatase 132 U/L (40-150); Anion Gap 11 mmol/L (10-20); BUN (Urea Nitrogen) 17 mg/dL (8.4-25.7); Bilirubin, Total 0.5 mg/dL (0.2-1.2); Calc. Creatinine Clearance 0 mL/min (70-130); Calcium 8.6 mg/dL (7.8-10.44); Chloride 104 mmol/L (98-107); Estimated GFR-MDRD 78; Globulin 3.3 g/dL (2.4-3.5); Glucose 100 mg/dL (83-110); Lipase 12 U/L (8-78); Potassium 4.1 mmol/L (3.5-5.1); Protein, Total 6.7 g/dL (5.8-8.1); Sodium 140 mmol/L (136-145)
[2017-09-09 10:55] LABS: CKMB 5.3 ng/mL (0-6.6); Troponin I 0.043 ng/mL (< 0.028)
[2017-09-09 11:03] LABS: Carbon Dioxide 29 mmol/L (23-31)
== END 2017-09-09 11:34 | disposition home or self-care (01) ==
LOC: NAV ERS 09:56
DX: K29.00 Acute gastritis without bleeding (principal); I10 Essential (primary) hypertension; S01.81XD Laceration without foreign body of other part of head, subsequent encounter; F03.90 Unspecified dementia, unspecified severity, without behavioral disturbance, psychotic disturbance, mood disturbance, and anxiety; Z85.118 Personal history of other malignant neoplasm of bronchus and lung; Z87.891 Personal history of nicotine dependence; Z79.899 Other long term (current) drug therapy; X58.XXXD Exposure to other specified factors, subsequent encounter
CPT/HCPCS: 36415; 80053; 82553; 83690; 84484; 85025; 93005; 96374; J3475; S0028

== ENCOUNTER 2017-09-12 23:36 | Emergency (ER) | payer MEDICARE ==
[2017-09-13] MEDS ORDERED: Mag-Al Plus 1200 MG/1200 MG/120 MG/30 ML UDCUP ONE (00:03)
[2017-09-13] MEDS ORDERED: Lidocaine Viscous Sol 2% 15 ml UD Cup ONE (00:03)
== END 2017-09-13 00:30 | disposition home or self-care (01) ==
LOC: NAV ERS 23:36
DX: K29.70 Gastritis, unspecified, without bleeding (principal); I10 Essential (primary) hypertension; Z87.891 Personal history of nicotine dependence; Z79.891 Long term (current) use of opiate analgesic; Z79.899 Other long term (current) drug therapy
CPT/HCPCS: 99284

== ENCOUNTER 2017-09-14 19:53 | Emergency (ER) | payer MEDICARE ==
--- NOTE | 2017-09-14 20:27 | RAD ---
PORTABLE CHEST: 09/14/17 COMPARISON: 08/22/17 and 09/06/17 studies. HISTORY: Cough and shortness of breath. Heart size is within normal limits. There are atherosclerotic changes of the aorta. Deformity to the right ribs is stable. No acute infiltrative process. IMPRESSION: No active intrathoracic disease. POS: [facility]
[2017-09-14] MEDS ORDERED: methylPREDNISolone Acetate 40 mg/ml Vial ONE (20:37)
== END 2017-09-14 21:05 | disposition home or self-care (01) ==
LOC: NAV ERS 19:53
DX: J44.0 Chronic obstructive pulmonary disease with (acute) lower respiratory infection (principal); J20.8 Acute bronchitis due to other specified organisms; F03.90 Unspecified dementia, unspecified severity, without behavioral disturbance, psychotic disturbance, mood disturbance, and anxiety; F17.210 Nicotine dependence, cigarettes, uncomplicated; I10 Essential (primary) hypertension; N40.0 Benign prostatic hyperplasia without lower urinary tract symptoms; Z85.118 Personal history of other malignant neoplasm of bronchus and lung; Z79.899 Other long term (current) drug therapy
CPT/HCPCS: 71010; 94640; 96372; J1030; J7620

== ENCOUNTER 2017-09-16 19:36 | Emergency (ER) | payer MEDICARE ==
[2017-09-16] MEDS ORDERED: methylPREDNISolone Sod Succ/PF 125 MG/2 ML VIAL ONE (20:08)
--- NOTE | 2017-09-16 20:25 | RAD ---
AP OF THE CHEST: 09/16/17 INDICATION: Shortness of breath and headache. IMPRESSION: No acute cardiopulmonary abnormality. Chronic lung changes are stable. Chronic osseous changes are st able to the comparison dated 09/14/17. POS: [facility]
[2017-09-16 21:11] LABS: ALT (SGPT) 95 U/L (8-55); AST (SGOT) 96 U/L (5-34); Albumin 3.5 g/dL (3.4-4.8); Alkaline Phosphatase 134 U/L (40-150); Anion Gap 14 mmol/L (10-20); BUN (Urea Nitrogen) 19 mg/dL (8.4-25.7); Bilirubin, Total 0.3 mg/dL (0.2-1.2); Calc. Creatinine Clearance 0 mL/min (70-130); Calcium 8.6 mg/dL (7.8-10.44); Carbon Dioxide 28 mmol/L (23-31); Chloride 107 mmol/L (98-107); Estimated GFR-MDRD 65; Globulin 3.4 g/dL (2.4-3.5); Glucose 94 mg/dL (83-110); Potassium 4.8 mmol/L (3.5-5.1); Protein, Total 6.9 g/dL (5.8-8.1); Sodium 144 mmol/L (136-145)
[2017-09-16 21:12] LABS: Eosinophils 2 % (0-10); Hypochromia MODERATE=16-30 cells (100X) (0-5/hpf); Lymphocytes 52 % (21-51); MDiff Complete? YES; Macrocytosis SLIGHT = 6-15 cells (100X) (0-5/hpf); Mean Corpuscular HGB CONC 31.3 g/dL (32.0-36.0); Mean Corpuscular Hemoglobin 33.5 pg (27.0-31.0); Mean Platelet Volume 7.5 fL (7.4-10.4); Monocytes 1 % (0-10); Neutrophil 44 % (42-75); PLT Morphology Comment Appears Adequate; Platelet Count 315 thou/uL (130-400); RBC Distribution Width 14.4 % (11.5-14.5); Red Blood Cell (RBC) Count 3.57 mill/uL (4.70-6.10); Reflex for Review?? NO; White Blood Cell (WBC) Count 3.9 thou/uL (4.8-10.8)
[2017-09-16] MEDS ORDERED: Furosemide 40 MG/4 ML VIAL ONE (22:24)
== END 2017-09-16 23:15 | disposition short-term general hospital (02) ==
LOC: NAV ERS 19:36
DX: I11.0 Hypertensive heart disease with heart failure (principal); I50.9 Heart failure, unspecified; F03.90 Unspecified dementia, unspecified severity, without behavioral disturbance, psychotic disturbance, mood disturbance, and anxiety; Z87.891 Personal history of nicotine dependence; Z79.899 Other long term (current) drug therapy
CPT/HCPCS: 36415; 71010; 80053; 83880; 85025; 94640; 96374; 96375; J1940; J2930; J7620

== ENCOUNTER 2017-09-21 20:48 | Emergency (ER) | payer MEDICARE ==
[2017-09-21 21:47] LABS: #Basophils 0.1 thou/uL (0.0-0.2); #Lymphocytes 1.8 thou/uL (1.20-3.40); #Monocytes 0.1 thou/uL (0.11-0.59); #Neutrophils 1.8 thou/uL (1.40-6.50); %Basophils 1.3 % (0.0-1.0); %Eosinophils 1.1 % (0.0-10.0); %Lymphocytes 47.5 % (21.0-51.0); %Monocytes 2.3 % (0.0-10.0); %Neutrophils 47.7 % (42.0-75.0); Mean Corpuscular Hemoglobin 32.8 pg (27.0-31.0); Mean Platelet Volume 7.2 fL (7.4-10.4); Platelet Count 367 thou/uL (130-400); RBC Distribution Width 13.9 % (11.5-14.5); Red Blood Cell (RBC) Count 4.27 mill/uL (4.70-6.10); White Blood Cell (WBC) Count 3.8 thou/uL (4.8-10.8)
[2017-09-21 21:51] LABS: ALT (SGPT) 27 U/L (8-55); AST (SGOT) 16 U/L (5-34); Albumin 3.8 g/dL (3.4-4.8); Alkaline Phosphatase 139 U/L (40-150); Anion Gap 13 mmol/L (10-20); BUN (Urea Nitrogen) 25 mg/dL (8.4-25.7); Bilirubin, Total 0.3 mg/dL (0.2-1.2); Calc. Creatinine Clearance 0 mL/min (70-130); Calcium 9.1 mg/dL (7.8-10.44); Carbon Dioxide 32 mmol/L (23-31); Chloride 99 mmol/L (98-107); Estimated GFR-MDRD 58; Globulin 3.5 g/dL (2.4-3.5); Glucose 102 mg/dL (83-110); Potassium 3.7 mmol/L (3.5-5.1); Protein, Total 7.3 g/dL (5.8-8.1); Sodium 140 mmol/L (136-145)
[2017-09-21 21:53] LABS: CKMB 3.5 ng/mL (0-6.6)
--- NOTE | 2017-09-21 22:20 | RAD ---
CHEST ONE VIEW 09/21/17 HISTORY: Dyspnea and shortness of breath. COMPARISON: 09/16/17. FINDINGS: Slight elongation of the aorta. Normal cardiac silhouette. Pulmonary vessels and hilum are normal. Co stophrenic angles are clear. Chronic changes in the right lung. Emphysematous change in the upper lob es. No pneumothorax. No osseous abnormalities. IMPRESSION: Chronic changes. No acute cardiopulmonary process. POS: [facility]
== END 2017-09-21 22:46 | disposition home or self-care (01) ==
LOC: NAV ERS 20:48
DX: R06.02 Shortness of breath (principal); I11.0 Hypertensive heart disease with heart failure; I50.9 Heart failure, unspecified; N40.0 Benign prostatic hyperplasia without lower urinary tract symptoms; Z87.891 Personal history of nicotine dependence; Z79.899 Other long term (current) drug therapy; Z79.82 Long term (current) use of aspirin
CPT/HCPCS: 71045; 80053; 82553; 83880; 84484; 85025; 93005

== ENCOUNTER 2017-09-22 22:05 | Emergency (ER) | payer MEDICARE | END 2017-09-22 23:00 | disposition home or self-care (01) | LOC: NAV ERS 22:05 | DX: I11.0 Hypertensive heart disease with heart failure (principal); I50.9 Heart failure, unspecified; F03.90 Unspecified dementia, unspecified severity, without behavioral disturbance, psychotic disturbance, mood disturbance, and anxiety; Z87.891 Personal history of nicotine dependence; Z79.82 Long term (current) use of aspirin; Z79.899 Other long term (current) drug therapy | CPT/HCPCS: 99284 ==

== ENCOUNTER 2017-09-26 09:56 | Emergency (ER) | payer MEDICARE ==
[2017-09-26 11:03] LABS: INR-International Normal Ratio 1.1; PTT 27.4 SEC (22.9-36.1); Prothrombin Time 13.8 SEC (12.0-14.7)
[2017-09-26 11:14] LABS: CKMB 3.7 ng/mL (0-6.6); Troponin I 0.033 ng/mL (< 0.028)
[2017-09-26 11:20] LABS: ALT (SGPT) 17 U/L (8-55); Albumin 3.4 g/dL (3.4-4.8); Alkaline Phosphatase 127 U/L (40-150); Anion Gap 15 mmol/L (10-20); BUN (Urea Nitrogen) 31 mg/dL (8.4-25.7); Bilirubin, Total 0.3 mg/dL (0.2-1.2); Calc. Creatinine Clearance 0 mL/min (70-130); Calcium 8.8 mg/dL (7.8-10.44); Carbon Dioxide 28 mmol/L (23-31); Chloride 105 mmol/L (98-107); Estimated GFR-MDRD 53; Globulin 3.3 g/dL (2.4-3.5); Glucose 76 mg/dL (83-110); Potassium 4.5 mmol/L (3.5-5.1); Protein, Total 6.7 g/dL (5.8-8.1); Sodium 143 mmol/L (136-145)
[2017-09-26 11:21] LABS: Eosinophils 2 % (0-10); Hemoglobin 12.3 g/dL (14.0-18.0); Hypochromia SLIGHT = 6-15 cells (100X) (0-5/hpf); Lymphocytes 45 % (21-51); MDiff Complete? YES; Macrocytosis SLIGHT = 6-15 cells (100X) (0-5/hpf); Mean Corpuscular HGB CONC 31.6 g/dL (32.0-36.0); Mean Corpuscular Hemoglobin 33.2 pg (27.0-31.0); Mean Platelet Volume 7.5 fL (7.4-10.4); Monocytes 2 % (0-10); Neutrophil 45 % (42-75); PLT Morphology Comment Appears Adequate; Platelet Count 285 thou/uL (130-400); RBC Distribution Width 13.8 % (11.5-14.5); Reactive Lymphocytes 5 % (0-10); Red Blood Cell (RBC) Count 3.71 mill/uL (4.70-6.10); White Blood Cell (WBC) Count 4.1 thou/uL (4.8-10.8)
[2017-09-26 11:29] LABS: AST (SGOT) 25 U/L (5-34)
--- NOTE | 2017-09-26 11:52 | RAD ---
AP CHEST: Indication: Chest pain. FINDINGS: No focal consolidation is evident. Heart size and pulmonary vasculature within normal limits. No acut e osseous abnormality is evident. Exam is compared to prior dated 09-21-17. IMPRESSION: No acute cardiopulmonary abnormality. POS: [facility]
[2017-09-26 13:57] LABS: Troponin I 0.037 ng/mL (< 0.028)
== END 2017-09-26 14:10 | disposition home or self-care (01) ==
LOC: NAV ERS 09:56
DX: R07.89 Other chest pain (principal); F03.90 Unspecified dementia, unspecified severity, without behavioral disturbance, psychotic disturbance, mood disturbance, and anxiety; I11.0 Hypertensive heart disease with heart failure; I50.9 Heart failure, unspecified; Z87.891 Personal history of nicotine dependence; Z79.82 Long term (current) use of aspirin; Z79.899 Other long term (current) drug therapy; Z85.118 Personal history of other malignant neoplasm of bronchus and lung
CPT/HCPCS: 71045; 80053; 82553; 84484; 85025; 85610; 85730; 93005; 94760

== ENCOUNTER 2017-09-29 12:07 | Emergency (ER) | payer MEDICARE | END 2017-09-29 13:00 | disposition home or self-care (01) | LOC: NAV ERS 12:07 | DX: M79.605 Pain in left leg (principal); M79.604 Pain in right leg; N40.0 Benign prostatic hyperplasia without lower urinary tract symptoms; I11.0 Hypertensive heart disease with heart failure; I50.9 Heart failure, unspecified; Z87.891 Personal history of nicotine dependence; Z79.899 Other long term (current) drug therapy; Z79.82 Long term (current) use of aspirin | CPT/HCPCS: 99283 ==

== ENCOUNTER 2017-10-25 05:37 | Emergency (ER) | payer MEDICARE ==
[2017-10-25] MEDS ORDERED: traMADol HCl 50 MG TAB ONE (06:01)
== END 2017-10-25 06:13 | disposition home or self-care (01) ==
LOC: NAV ERS 05:37
DX: R10.13 Epigastric pain (principal); M25.562 Pain in left knee; N40.0 Benign prostatic hyperplasia without lower urinary tract symptoms; Z87.891 Personal history of nicotine dependence; Z79.899 Other long term (current) drug therapy; Z79.82 Long term (current) use of aspirin
CPT/HCPCS: 99284

== ENCOUNTER 2017-11-18 13:47 | Emergency (ER) | payer MEDICARE ==
[2017-11-18] MEDS ORDERED: Metoclopramide HCl 10 MG/2 ML VIAL ONE (14:23)
[2017-11-18] MEDS ORDERED: Acetaminophen 500 MG TAB ONE (14:23)
[2017-11-18] MEDS ORDERED: diphenhydrAMINE 50 MG/ML VIAL ONE (14:23)
[2017-11-18] MEDS ORDERED: Sodium Chloride 0.9% 1,000 ML ONE (14:23)
--- NOTE | 2017-11-18 15:00 | CT ---
CT OF HEAD NONCONTRAST: INDICATION: Headache. FINDINGS: There is chronic microvascular ischemic disease. There is prominence of the ventricular system. No acute intracranial hemorrhage, mass effect, or midline shift. There is no fluid level of the imaged paranasal sinuses. IMPRESSION: 1. No evidence of acute intracranial hemorrhage or mass effect. 2. Mild ventriculomegaly. 3. Moderate chronic microvascular ischemic disease. POS: [facility]
== END 2017-11-18 15:21 | disposition home or self-care (01) ==
LOC: NAV ERS 13:47
DX: R51 Headache (principal); F03.90 Unspecified dementia, unspecified severity, without behavioral disturbance, psychotic disturbance, mood disturbance, and anxiety; I11.0 Hypertensive heart disease with heart failure; I50.9 Heart failure, unspecified; Z87.891 Personal history of nicotine dependence; Z79.82 Long term (current) use of aspirin; Z79.899 Other long term (current) drug therapy; Z85.118 Personal history of other malignant neoplasm of bronchus and lung
CPT/HCPCS: 70450; 96361; 96374; 96375; J1200; J2765; J7050